=== PATIENT | female | born 1985 | race Caucasian/White ===

== ENCOUNTER 2017-07-05 19:23 | Emergency (ER) | payer BC, OTHER ==
[~2017-07-05] VITALS: Ht 162.6 cm; Wt 50.3 kg
[2017-07-05 19:29] VITALS: BP 130/75; PULSE 102; TEMP 36.7; O2SAT 99; Ht 162.6 cm; Wt 50.3 kg
[2017-07-05] MEDS ORDERED: AMPH20TA2 PO (19:51)
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
== END 2017-07-05 20:55 | disposition home or self-care (01) ==
LOC: C.EDB 19:24 → C.EDD 20:55
DX: S90.31XA Contusion of right foot, initial encounter (principal); S70.02XA Contusion of left hip, initial encounter; V03.00XA Pedestrian on foot injured in collision with car, pick-up truck or van in nontraffic accident, initial encounter; Y92.214 College as the place of occurrence of the external cause; M25.569 Pain in unspecified knee; M79.641 Pain in right hand; M79.642 Pain in left hand; Z82.49 Family history of ischemic heart disease and other diseases of the circulatory system; Z84.1 Family history of disorders of kidney and ureter

== ENCOUNTER 2018-03-02 23:12 | Emergency (ER) | payer OTHER ==
[~2018-03-02] VITALS: Ht 162.6 cm; Wt 49.7 kg
[~2018-03-02 23:12] MED LIST: AMPH20TA2 PO; ONDA4TAB46 PO; OXYC-737 PO
[2018-03-02 23:18] VITALS: TEMP 37; Ht 162.6 cm; Wt 49.7 kg
[2018-03-02] MEDS ORDERED: KETOROLAC TROMETHAMINE 30 MG/ML VIAL IV STA (23:54)
[2018-03-02] MEDS ORDERED: SODIUM CHLORIDE 0.9% 1000ML 1,000 ML IV STA (23:54)
[2018-03-02] MEDS ORDERED: MoRPHine SULFATE 4 MG/ML 1 ML CARP\\VIAL IV STA (23:54)
[2018-03-03 00:06] LABS: BASO % 0.2 %; BASO ABS # 0.02 K/uL (0-0.2); EOS % 0.4 %; EOS ABS # 0.05 K/uL (0-0.5); HEMATOCRIT 39.9 % (37-47); HEMOGLOBIN 13.7 g/dL (12.0-16.0); IG# 0.03 K/uL (0.00-0.02); LYMPH % 17.8 %; LYMPH ABS # 2.13 K/uL (1.2-3.4); MEAN CELL VOLUME 92.6 fL (80-100); MEAN CORPUSCULAR HEMOGLOBIN 31.8 pg (25-34); MEAN CORPUSCULAR HGB CONC 34.3 g/dl (32-36); MEAN PLATELET VOLUME 9.9 fL (7.4-10.4); MONO % 5.8 %; MONO ABS # 0.69 K/uL (0.11-0.59); NEUT % 75.5 %; NEUT ABS # 9.03 K/uL (1.4-6.5); PLATELET COUNT 244 K/uL (130-400); RED CELL DISTRIBUTION WIDTH CV 13.1 % (11.5-14.5); RED CELL DISTRIBUTION WIDTH SD 44.7 fL (36.4-46.3); WHITE BLOOD COUNT 11.95 K/uL (4.8-10.8)
[2018-03-03 00:25] LABS: ALBUMIN 4.1 gm/dl (3.4-5.0); CALCIUM 8.7 mg/dl (8.5-10.1); CREATININE 0.81 mg/dl (0.60-1.20); POTASSIUM 3.7 mmol/L (3.5-5.1); TOTAL PROTEIN 7.2 gm/dl (6.4-8.2)
[2018-03-03] MEDS ORDERED: CEFTRIAXONE SOD INJ 1 GM ADDVIAL IV STA (01:43)
[2018-03-03] MEDS ORDERED: MoRPHine SULFATE 4 MG/ML 1 ML CARP\\VIAL IV STA (01:49)
[2018-03-03] MEDS ORDERED: SULF800T23 PO (02:13)
--- NOTE | 2018-03-03 02:16 | EMERGENCY ROOM VISIT NOTE ---
History Report prepared by Brooklynnibana cristina: Amandeep Thomas Under the Supervision of: Dr. Cedric Stephens D.O. First contact with patient: 23:26 Chief Complaint: KIDNEY STONE Stated Complaint: KIDNEY STONE MAY BE STUCK,BLOOD IN URINE, PAIN History of Present Illness The patient is a 32 year old female who presents to the Emergency Room with complaints of lower abdominal pain that began at 1999. She rates her pain as an 8/10 in severity. The patient states that she was recently here for kidney stones and was prescribed Oxycodone. She reports her pain resolved within a couple of days. The patient notes she is unsure if she passed the kidney stone. She reports that similar pain returned this evening lower in her abdomen. The patient states she has been in pain with urination. She notes she has also been experiencing hematuria. The patient states she took Oxycodone for her pain. She denies back pain, flank pain, fevers, cough, chest pain, shortness of breath, nausea, vomiting, and diarrhea. The patient states she currently has her menstrual period. She notes her last bowel movement was today. Source of History: patient Onset: 1999 Position: abdomen (lower) Symptom Intensity: 8/10 Timing: constant Modifying Factors (Relieving): other (Oxycodone) Associated Symptoms: + urinary symptoms, No fevers, No cough, No chest pain , No SOB, No nausea, No vomiting, No back pain, No diarrhea Review of Systems See HPI for pertinent positives & negatives. A total of 10 systems reviewed and were otherwise negative. Past Medical & Surgical Medical Problems: (1) Migraine (2) No significant past medical history (3) UTI (urinary tract infection) Surgical Problems: (1) History of wisdom tooth extraction Family History FH: cancer FH: heart disease FH: hypertension FH: kidney disease Social History Smoking Status: Never Smoker Alcohol Use: none Marital Status: Occupation Status: employed Current/Historical Medications Scheduled Amphetamine-Dextroamphetamine 20MG (Adderall 20MG), 20 MG PO BID Scheduled PRN Ondansetron Hcl (Zofran), 4 MG PO Q8H PRN for Nausea Oxycodone Immediate Rel Tab (Roxicodone Ir), 5 MG PO Q6H PRN for Pain Allergies Coded Allergies: Shellfish (Unverified Allergy, Intermediate, ., 03/03/18) Sumatriptan (Unverified Allergy, Intermediate, HEART PULPATATIONS, 03/03/18 ) Physical Exam Vital Signs Date Time Temp Pulse Resp B/P (MAP) Pulse Ox O2 Delivery O2 Flow Rate FiO2 03/03/18 01:41 80 18 123/63 97 Room Air 03/02/18 23:58 88 18 133/60 98 Room Air 03/02/18 23:18 37.0 72 16 123/83 98 Room Air Physical Exam GENERAL: Sitting up in bed, no distress, non-toxic EYE EXAM: normal conjunctiva. OROPHARYNX: no exudate, no erythema, lips, buccal mucosa, and tongue normal and mucous membranes are moist NECK: supple, no nuchal rigidity, no adenopathy, non-tender LUNGS: Clear to auscultation. Normal chest wall mechanics HEART: no murmurs, S1 normal and S2 normal ABDOMEN: abdomen soft, mild suprapubic tenderness/left lower quadrant, normo- active bowel sounds, no masses, no rebound or guarding. BACK: Back is symmetrical on inspection and there is no deformity, no midline tenderness, no CVA tenderness. SKIN: no rashes and no bruising UPPER EXTREMITIES: upper extremities are grossly normal. LOWER EXTREMITIES: No pitting edema. NEURO EXAM: Normal sensorium, cranial nerves II-XII grossly intact, normal speech, no gross weakness of arms, no gross weakness of legs. Medical Decision & Procedures ER Provider Diagnostic Interpretation: Ultrasound per stat read of the pelvic/endovaginal region: Fibroid uterus. Bilateral ovaries without torsion. Left ovary with mixed echogenicity and a round lesion measuring 1.9 cm. Doppler flow was seen. Findings are nonspecific. Question hemorrhagic cyst versus endometrioma. Ultrasound of the kidneys show no hydro-. Bladder did show wall thickening. I did review all images. Laboratory Results 03/02/18 23:55 Red Blood Count 4.31, Mean Corpuscular Volume 92.6, Mean Corpuscular Hemoglobin 31.8, Mean Corpuscular Hemoglobin Concent 34.3, Mean Platelet Volume 9.9, Neutrophils (%) (Auto) 75.5, Lymphocytes (%) (Auto) 17.8, Monocytes (%) (Auto) 5.8, Eosinophils (%) (Auto) 0.4, Basophils (%) (Auto) 0.2, Neutrophils # (Auto) 9.03, Lymphocytes # (Auto) 2.13, Monocytes # (Auto) 0.69, Eosinophils # (Auto) 0.05, Basophils # (Auto) 0.02 03/02/18 23:55 Test 03/02/18 23:55 03/03/18 01:25 White Blood Count 11.95 K/uL (4.8-10.8) Red Blood Count 4.31 M/uL (4.2-5.4) Hemoglobin 13.7 g/dL (12.0-16.0) Hematocrit 39.9 % (37-47) Mean Corpuscular Volume 92.6 fL (80-100) Mean Corpuscular Hemoglobin 31.8 pg (25-34) Mean Corpuscular Hemoglobin Concent 34.3 g/dl (32-36) Platelet Count 244 K/uL (130-400) Mean Platelet Volume 9.9 fL (7.4-10.4) Neutrophils (%) (Auto) 75.5 % Lymphocytes (%) (Auto) 17.8 % Monocytes (%) (Auto) 5.8 % Eosinophils (%) (Auto) 0.4 % Basophils (%) (Auto) 0.2 % Neutrophils # (Auto) 9.03 K/uL (1.4-6.5) Lymphocytes # (Auto) 2.13 K/uL (1.2-3.4) Monocytes # (Auto) 0.69 K/uL (0.11-0.59) Eosinophils # (Auto) 0.05 K/uL (0-0.5) Basophils # (Auto) 0.02 K/uL (0-0.2) RDW Standard Deviation 44.7 fL (36.4-46.3) RDW Coefficient of Variation 13.1 % (11.5-14.5) Immature Granulocyte % (Auto) 0.3 % Immature Granulocyte # (Auto) 0.03 K/uL (0.00-0.02) Urine RBC >30 /hpf (0-4) Urine WBC >30 /hpf (0-5) Urine Epithelial Cells 5-10 /lpf (0-5) Urine Bacteria NEG (NEG) Urine Test NEG (NEG) Anion Gap 8.0 mmol/L (3-11) Est Creatinine Clear Calc Drug Dose 79.0 ml/min Estimated GFR () 112.2 Estimated GFR (Non- 96.8 BUN/Creatinine Ratio 11.1 (10-20) Calcium Level 8.7 mg/dl (8.5-10.1) Total Bilirubin 1.3 mg/dl (0.2-1) Direct Bilirubin 0.3 mg/dl (0-0.2) Aspartate Amino Transf (AST/SGOT) 8 U/L (15-37) Alanine Aminotransferase (ALT/SGPT) 14 U/L (12-78) Alkaline Phosphatase 47 U/L (45-117) Total Protein 7.2 gm/dl (6.4-8.2) Albumin 4.1 gm/dl (3.4-5.0) Lipase 179 U/L (73-393) Urine Color YELLOW Urine Appearance CLOUDY (CLEAR) Urine pH 6.0 (4.5-7.5) Urine Specific [place] 1.007 (1.000-1.030) Urine Protein NEG (NEG) Urine Glucose (UA) NEG (NEG) Urine Ketones NEG (NEG) Urine Occult Blood 3+ (NEG) Urine Nitrite NEG (NEG) Urine Bilirubin NEG (NEG) Urine Urobilinogen NEG (NEG) Urine Leukocyte Esterase LARGE (NEG) Laboratory results per my review. Medications Administered Medications (Trade) Dose Ordered Sig/Bhumi Route Start Time Stop Time Status Last Admin Dose Admin Sodium Chloride 1,000 ml @ 999 mls/hr Q1H1M STAT IV 03/02/18 23:54 03/03/18 00:54 DC 03/03/18 00:01 999 MLS/HR Ketorolac Tromethamine (Toradol Inj) 30 mg NOW STAT IV 03/02/18 23:54 03/02/18 23:55 DC 03/03/18 00:02 30 MG Morphine Sulfate (MoRPHine SULFATE INJ) 4 mg NOW STAT IV 03/02/18 23:54 03/02/18 23:55 DC 03/03/18 00:02 4 MG Ceftriaxone Sodium (Rocephin Inj) 1 gm NOW STAT IV 03/03/18 01:43 03/03/18 01:44 DC 03/03/18 01:52 1 GM Morphine Sulfate (MoRPHine SULFATE INJ) 4 mg NOW STAT IV 03/03/18 01:49 03/03/18 01:50 DC 03/03/18 01:53 4 MG ED Course ED COURSE: Vital signs were reviewed and showed normal. The patients medical record was reviewed The above diagnostic studies were performed and reviewed. ED treatments and interventions as stated above. 2330: The patient was evaluated in room C12B. A complete history and physical examination was performed. 2354: Ordered Morphine Sulfate 4 mg IV, Toradol Injection 30 mg IV, Sodium Chloride 1000 ml @ 999 mls/hr IV. 0100 long discussion with the patient in regards to previous studies and the results. 200: Upon reevaluation, the patient is comfortable. I discussed my findings with the patient and she understands and agrees with the treatment plan. Based on the patients age, coexisting illnesses, exam and lab findings the decision to treat as an outpatient was made. The patient remained stable while under my care. The patient appeared well at the time of discharge. Medical Decision Differential diagnoses includes but is not limited to gastritis, peptic ulcer disease, GERD, gallbladder disease, pancreatitis, small bowel obstruction, acute coronary syndrome, pericarditis, ischemic bowel, irritable bowel disease, irritable bowel syndrome, appendicitis, diverticulitis, malignancy, hernia, urinary tract infection, torsion, /ectopic (if female), perforation, trauma, infectious. Patient is a 32-year-old female who presents the ER for suprapubic/left lower quadrant abdominal pain associated with hematuria. Patient notes that the symptoms feel very similar to when she was here before earlier this month about 10 days ago. At that point she had CT and she knows she was diagnosed with renal colic. Upon review of the CAT scan both read by stat read, our radiologist and myself I saw no signs of any renal stones. There was a pelvic calcification which measures 7.5 mm. I do favor that this is likely what Dr. Lyn was referring to. I do not believe this is a kidney stone especially with 2 negative readings by 2 separate radiologist. I also do not believe that she is a kidney stone today as she had no stones in her kidneys on the previous CAT scan performed 10 days ago. CBC along with BMP, LFTs, bilirubin and lipase was remarkable for a slightly elevated bilirubin at 1.3. Initial UA had a large amount of blood and I do favor this is secondary to her menstrual period. was negative. Repeat urine does show some hematuria but a likely infection. This is also confirmed by the ultrasound which shows a bladder with wall thickening and debris. There is no hydrocele on the ultrasound. KUB was unremarkable. Ultrasound of the pelvis demonstrated a left ovarian mixed echogenicity lesion 1.9 cm. No signs of torsion. Question hemorrhagic cyst versus endometrioma. Patient was given 2 doses of IV narcotics. Patient was given fluids. She was given IV Rocephin. She was updated at bedside. I do favor the pain is likely multifactorial in a combination of her UTI and ovarian cyst/possible hemorrhagic cyst. She is discharged follow-up with PCP as an outpatient. Discussed with Pt concerning signs and symptoms to watch out for. Pt was instructed to follow up with their PCP and discussed with the patient their option to return to the ED at anytime for persistent or worsening symptoms. The appropriate anticipatory guidance and out-patient management, including indications for return to the emergency department, were explained at length to the patient and understood. Medication Reconcilliation Current Medication List: was personally reviewed by me Blood Pressure Screening Patient's blood pressure: Normal blood pressure Impression Primary Impression: UTI (urinary tract infection) Additional Impression: Ovarian mass Scribe Attestation The scribe's documentation has been prepared under my direction and personally reviewed by me in its entirety. I confirm that the note above accurately reflects all work, treatment, procedures, and medical decision making performed by me. Departure Information Dispostion Home / Self-Care Prescriptions Sulfamethoxazole-Trimethoprim (Bactrim Ds 800MG/160MG) 1 Tab Tab 1 TAB PO BID, #14 TAB Prov: Cedric Stephens, DO 03/03/18 Referrals Snehal Crane (PCP) Forms HOME CARE DOCUMENTATION FORM, IMPORTANT VISIT INFORMATION Patient Instructions Cyst Ovarian Tx, ED UTI Cystitis Female, My [facility] Additional Instructions Please follow up with your primary care doctor with in the next 24 hours. Any worsening of your symptoms, please return to the ED immediately. This includes any fevers greater than 100.4, worsening pain, chest pain, shortness breath, persistent nausea, vomiting, unable to eat or drink, or any other concerning signs or symptoms from your standpoint. Please take Motrin or Tylenol as needed for pain. Please take antibiotics as prescribed. Please make sure you follow-up with your PCP or [facility] in regards to the 1.9 centimeter complex cyst of mixed echogenicity within the left ovary. Question hemorrhagic cyst first endometrioma. You should follow-up and have a repeat ultrasound within 6 weeks. Problem Qualifiers Primary Impression: UTI (urinary tract infection) Urinary tract infection type: acute cystitis Hematuria presence: with hematuria Qualified Codes: N30.01 - Acute cystitis with hematuria
[2018-03-03 02:32] VITALS: BP 105/59; PULSE 74; O2SAT 97
--- NOTE | 2018-03-03 06:39 | DIAGNOSTIC IMAGING REPORT ---
KUB HISTORY: Acute right-sided flank pain renal stone COMPARISON: CT abdomen and pelvis 02/17/2018 FINDINGS: The bowel gas pattern is non-obstructive. Moderate formed stool is noted about the right hemicolon. There is no organomegaly. Renal shadows are obscured secondary to bowel gas. No renal or ureteral calculi identified. Phleboliths of the left hemipelvis redemonstrated. No pneumoperitoneum or pneumatosis. No fracture. Mild convex left curvature about the mid lumbar spine. IMPRESSION: No renal or ureteral calculi. Electronically signed by: Andrzej Birmingham M.D. 03/03/2018 6:37 AM Dictated Date/Time: 03/03/2018 6:36 AM
--- NOTE | 2018-03-03 06:43 | DIAGNOSTIC IMAGING REPORT ---
TRANSVAG-FEMALE PELVIS HISTORY: Pelvic pain lower pelvic pain. COMPARISON: None. FINDINGS: Uterus: Fibroid-type uterus. Maximum dimension 8 cm. Maximum fibroid dimension 3.8 cm. Endometrial stripe: Poorly seen Right ovary: Maximum dimension 3.1 cm. Normal vascular flow Left ovary: 3.5 cm maximum dimension with normal vascular flow. 1.9 x 1.6 cm complex hemorrhagic cyst versus possible endometrioma. Miscellaneous:No pelvic free fluid. IMPRESSION: 1. Fibroid-type uterus. 2. 1.9 x 1.6 cm complex left ovarian cyst versus endometrioma. The above report was generated using voice recognition software. It may contain grammatical, syntax or spelling errors. Electronically signed by: Jareth Vaughan M.D. 03/03/2018 6:42 AM Dictated Date/Time: 03/03/2018 6:40 AM
--- NOTE | 2018-03-03 07:32 | DIAGNOSTIC IMAGING REPORT ---
RENAL ULTRASOUND HISTORY: Right flank pain. COMPARISON: Abdomen and pelvis CT 02/17/2018. FINDINGS: Right kidney: 9.9 cm. The tip of the lower pole is obscured by overlying bowel gas. No hydronephrosis. Normal corticomedullary differentiation and cortical thickness. Left kidney: 11.5 cm. No hydronephrosis. Normal corticomedullary differentiation and cortical thickness. Bladder: Mild bladder wall thickening. Small postvoid residual of 30 cc. There is debris within the bladder lumen. IMPRESSION: 1. Normal kidneys. No hydronephrosis. 2. Mild bladder wall thickening with internal debris. Correlate for cystitis. 3. Post void residual of 30 cc. Electronically signed by: Jeffrey Lackey M.D. 03/03/2018 7:31 AM Dictated Date/Time: 03/03/2018 7:29 AM
== END 2018-03-03 02:32 | disposition home or self-care (01) ==
LOC: C.EDB 23:13 → C.EDC 03-03 02:32
DX: N30.01 Acute cystitis with hematuria (principal); N83.8 Other noninflammatory disorders of ovary, fallopian tube and broad ligament; Z87.440 Personal history of urinary (tract) infections; Z88.8 Allergy status to other drugs, medicaments and biological substances